=== PATIENT | female | born 1985 | race African-American/Black ===

== ENCOUNTER 2019-07-05 10:45 | Inpatient (IN) | payer MEDICAID, SELFPAY ==
[2019-07-05 10:09] VITALS: BMI 30.9
[2019-07-05 10:42] LABS: ROM Internal Control Test YES-OK TO RESULT pt. (Internal QC)
[2019-07-05 10:43] LABS: ROM Patient Test POSITIVE (Negative)
--- NOTE | 2019-07-05 12:21 | PCM.HP.OB ---
History Date of Admission: 07/05/19 Final SAUL: 06/29/19 Gestational age: 40 Weeks and 6 Days History of this : This is a 34 year-old, G 1P 0 @ 40.6 wks, SROM at home- Meconium in early labor - wishes for minimal intervention. Allergies No Known Allergies Allergy (Verified 07/05/19 12:00) Smoking Status: Never smoker Alcohol: None Number of Fetus(es): 1 NST - FHR Rate Baby A Baseline: 130 Variability:: Moderate Accelerations:: 15 x 15 Decelerations:: None NST Reactive:: Yes FHR Category:: Category I Uterine Activity:: 2-6 History Past Pregnancies: Past Pregnancies Delivery Date Name GA/ Weeks Outcome Route Wt Sex Labor Length Anesthesia Delivery Location Provider FOB Expected Infant Delivery Method: Spontaneous Vaginal Physical Exam Presentation: Cephalic Cervix Dilation (cm): 3 Station: -1 Effacement (%): 70 Assessment/Plan This is a 34 year-old, @ 40.6 wks- SROM in early labor 1) admit to l&D 2) monitor fhr/toco 3) minimal intervention per patient request- if not progressing will continue Pitocin augmentation 4) epidural or Nitrous for pain relief if desired 5) anticipate - Meconium - peds to be present for delivery
[2019-07-05 12:32] LABS: Absolute Lymphocyte Count 1.39 X10^3/uL (0.83-4.51); Absolute Neutrophil Count 7.5 X10^3/uL (2.0-7.7); Basophil# 0.02 X10^3/uL; Basophil% 0.2 % (0-1); Eosinophil# 0.01 X10^3/uL; Eosinophils% 0.1 % (0-5); Hematocrit 34.6 % (37-47); Hemoglobin 11.2 g/dL (12.0-15.0); Lymphocyte # 1.39 X10^3/ul (4.0); Lymphocyte % 14.7 % (19-41); Mean Corp Hgb Conc 32.4 g/dL (32-36); Mean Corpuscular Hgb 30.1 pg (27.0-32.0); Mean Platelet Vol. 11.4 fl (6.2-12.0); Monocyte# 0.53 X10^3/uL; Monocyte% 5.6 % (0-10); NRBC Flagged by Analyzer 0 % (0-5); Neutrophil # 7.45 X10^3/uL (2.7-7.7); Neutrophil % 78.8 % (47-70); Platelet Count 173 K/mm3 (150-450); RBC Distribution Width CV 13.2 % (11.6-14.6); RBC Distribution Width SD 45.2 fl (35.1-43.9); Red Blood Count 3.72 M/mm3 (4.2-5.4); White Blood Count 9.5 K/mm3 (4.4-11.0)
--- NOTE | 2019-07-05 12:59 | PN_ITS ---
Progress Note Patient seen at bedside and exam was performed. Vaginal exam tight 3 cm / 70%/- 2 meconium fluid still noted. Discussed with the patient that she is not feeling contractions and her contraction pattern has spaced out every 2 to 6 minutes. We discussed that she is not in labor and my recommendation would be to start Pitocin at this time. Patient has been ruptured since 529 without cervical change and not in labor. pt would like time to consider this option.
[2019-07-05] MEDS: Lactated Ringers 1,000 ML 50 ML IV (17:17)
[2019-07-05] MEDS: Oxytocin 30 units/NS 500 ml 30 UNITS/500 ML IV.SOLN IV (17:30)
--- NOTE | 2019-07-05 18:37 | PCM.PN.BLA ---
Progress Note late entry: pt was seen at bedside around 5:15pm- pt still was declining pitocin until this time. i reviewed with patient she has been ruptured 12 hours with meconium fluid and has not felt any painful contractions- VE unchanged still 3cm/70/-2. I reviewed that it was my medical opinion at this time to not continue with expectant mgmt and to begin pitocin. pt was agreeable.
[2019-07-05] MEDS: Lactated Ringers 500 ML 999 ML IV ×2 (20:08→21:02)
[2019-07-05] MEDS: Oxytocin 10 UNITS/ML Vial IM (22:49)
[2019-07-05] MEDS: miSOPROStol 200 MCG Tablet 1000 MCG RECTAL (23:00)
--- NOTE | 2019-07-05 23:57 | OP.PCM_ITS ---
Vaginal Delivery Maternal Presentation: Spontaneous Rupture of Membranes Amniotic Membrane Rupture Type: Spontaneous at home Amniotic Fluid Description: Moderate meconium Final SAUL: 07/01/19 Gestational age: 40 Weeks and 4 Days Date of Procedure: 07/05/19 Pre-Operative Diagnosis: Term gestation, SROM at home Post-Operative Diagnosis: live male infant Surgery/ Procedure Performed: Spontaneous Vaginal Delivery Type of Anesthesia: None Description of Procedure: of a live male infant born without complication. Mother with good pushing efforts. Gentle downward traction was placed once the head was delivered the anterior shoulder was delivered with gentle downward traction followed by rest of body. That was vigorous at time of delivery. Placed on mother's chest. Delayed cord clamping was performed. Pediatrics was present in the room due to the meconium. Second-degree vaginal laceration second-degree perineal laceration were appreciated. There was lower segment atony without hemorrhage. IM Pitocin was given as the IV was accidently pulled immediately prior to del silvestre. Rectal Cytotec 1000 micrograms was given. Vaginal lacerations were repaired using 2-0 Vicryl suture and the skin was repaired using 3-0 rapide. Presentation: Vertex Placental Delivery Description: Spontaneous Placenta Disposition: [facility] Cord Vessel Description: 3 Vessels Cord Entanglement: None Estimated Blood Loss: 600 Infant A gender: Male (1 minute): 8 (5 minute): 9 Episiotomy Description: None Laceration: Vaginal Extension/lac - repaired with 2-0 vicryl and 3-0 rapide, 2nd degree Medications given after delivery: IV Pitocin, - - 1000mcg rectal cytotec Complications: None
[2019-07-06] MEDS: Ibuprofen 600 MG Tablet PO ×3 (01:30→23:41)
[2019-07-06 02:40] VITALS: BP 133/81; PULSE 116; RESP 18
[2019-07-06] MEDS: oxyCODONE 5 MG Tablet PO ×2 (02:55→12:24)
[2019-07-06 08:34] VITALS: BP 130/82; PULSE 96; RESP 16; TEMP 36.9
[2019-07-06 12:00] VITALS: BP 140/72; PULSE 86; RESP 16; TEMP 37
--- NOTE | 2019-07-06 13:12 | PCM.PN.OB ---
Subjective: Denies complaints - Physical Exam Vitals/I&O's: Vital Signs Temp Pulse Resp BP 98.6 F 86 16 140/72 H 07/06/19 12:00 07/06/19 12:00 07/06/19 12:00 07/06/19 12:00 Oxygen Delivery Method Room Air Weight: 192 lb Body Mass Index (BMI) 30.9 Intake and Output for Last 24 Hours 07/04/19 07/05/19 07/06/19 23:59 23:59 23:59 Intake Total 1181.91 / 1181.91 Output Total 700 / 700 Balance 1181.91 / 1181.91 -700 / -700 General: Alert, Oriented x3 Abdomen: Soft, Non Tender, Non-Distended - ff mid & below umb Extremities: No Calf Tenderness Laboratory Results 07/05/19 12:00: Blood Type B POSITIVE, Antibody Screen TNP 07/05/19 12:00: Antibody Screen NEGATIVE Current Medications Acetaminophen (Tylenol) 1,000 mg PO Q8H PRN PRN PRN Reason: Pain Score 1-3/10 Bisacodyl (Dulcolax) 10 mg RECTAL UD PRN PRN Reason: If no BM Dibucaine (Dibucaine) 1 applic TOPICAL TID PRN PRN; Protocol PRN Reason: Discomfort Hydrocortisone (Hytone) 1 applic TOPICAL TID PRN PRN; Protocol PRN Reason: Discomfort Ibuprofen (Motrin) 600 mg PO Q6H PRN PRN PRN Reason: Pain Score 1-3/10 Last Admin: 07/06/19 01:30 Dose: 600 mg Documented by: Methylergonovine Maleate (Methergine) 0.2 mg IM X1 PRN PRN Reason: Excess bleeding/uterine atony Ondansetron HCl (Zofran) 4 mg IV Q4H PRN PRN PRN Reason: Nausea Oxycodone HCl (Oxyir) 5 - 10 mg PO Q4H PRN PRN PRN Reason: Pain Score 4-10/10 Last Admin: 07/06/19 12:24 Dose: 10 mg Documented by: Oxytocin (Pitocin) 10 units IM X1 DEWAYNE Last Admin: 07/05/19 22:49 Dose: 10 units Documented by: Senna/Docusate Sodium (Senokot-S, Ángela-Colace) 1 - 2 tablet PO DAILY PRN PRN PRN Reason: Constipation Simethicone (Mylicon) 80 mg PO PCHS PRN PRN Reason: Indigestion/Stomach pain Sodium Chloride () 5 - 15 ml IV UD PRN PRN Reason: SALINE FLUSH Medical Necessity - Tobacco Use Smoking Status: Never smoker Assessment/Plan PPD #1 Routine care Encouraged
[2019-07-06 14:00] VITALS: BP 136/77; PULSE 109; RESP 16; RESP 18
[2019-07-06 19:35] VITALS: BP 135/78; PULSE 107; RESP 18; TEMP 36.6; O2SAT 99
[2019-07-06] MEDS: Senna/Docusate Sodium 1 Tablet PO (21:17)
[2019-07-07 01:18] VITALS: BP 125/70; PULSE 99; RESP 16; TEMP 36.3
[2019-07-07] MEDS: Acetaminophen 500 MG Tablet 1000 MG PO ×2 (04:27→12:19)
[2019-07-07 04:35] LABS: Hemoglobin 7.1 g/dL (12.0-15.0); Mean Corp Hgb Conc 32.3 g/dL (32-36); Mean Corpuscular Hgb 30.5 pg (27.0-32.0); Mean Corpuscular Volume 94.4 fL (81-99); Mean Platelet Vol. 11.1 fl (6.2-12.0); Platelet Count 130 K/mm3 (150-450); RBC Distribution Width CV 13.2 % (11.6-14.6); RBC Distribution Width SD 45.4 fl (35.1-43.9); Red Blood Count 2.33 M/mm3 (4.2-5.4); White Blood Count 10.2 K/mm3 (4.4-11.0)
[2019-07-07] MEDS: Ibuprofen 600 MG Tablet PO (06:37)
[2019-07-07 09:00] VITALS: BP 115/77; PULSE 88; RESP 14; TEMP 36.6; O2SAT 98
--- NOTE | 2019-07-07 09:16 | PCM.PN.OB ---
Subjective: Doing well per patient and nursing staff. Ambulating and taking PO without difficulty. Voiding and passing flatus. Denies any headache, visual changes, shortness of breath, leg pain. Pain controlled. without difficulty. Planning D/C home today. - Physical Exam Vitals/I&O's: Vital Signs Temp Pulse Resp BP Pulse Ox 97.4 F L 99 16 125/70 H 99 07/07/19 01:18 07/07/19 01:18 07/07/19 01:18 07/07/19 01:18 07/06/19 19:35 Oxygen Delivery Method Room Air Weight: 192 lb Body Mass Index (BMI) 30.9 Intake and Output for Last 24 Hours 07/05/19 07/06/19 07/07/19 23:59 23:59 23:59 Intake Total 1181.91 / 1181.91 Output Total 700 / 700 Balance 1181.91 / 1181.91 -700 / -700 General: Alert, Oriented x3, Cooperative HEENT: Atraumatic, Normocephalic Neck: Trachea Midline Lungs: Clear to auscultation, Normal air movement, No rhonchi, No wheeze Cardiovascular: Regular rate, Regular Rhythm, No murmurs Abdomen: Bowel Sounds Present, Soft - Fundus firm 2 below U Extremities: No edema Neurological: Deep Tendon Reflexes 2+/4 and Symmetrical Psych/Mental Status: Normal Affect, Appropriate Laboratory Results 07/07/19 04:20: WBC 10.2, RBC 2.33 L, Hgb 7.1 L, Hct 22.0 L, MCV 94.4, MCH 30.5, MCHC 32.3, RDW Std Deviation 45.4 H, RDW Coeff of Genesis 13.2, Plt Count 130 L, MPV 11.1 Current Medications Acetaminophen (Tylenol) 1,000 mg PO Q8H PRN PRN PRN Reason: Pain Score 1-3/10 Last Admin: 07/07/19 04:27 Dose: 1,000 mg Documented by: Bisacodyl (Dulcolax) 10 mg RECTAL UD PRN PRN Reason: If no BM Dibucaine (Dibucaine) 1 applic TOPICAL TID PRN PRN; Protocol PRN Reason: Discomfort Hydrocortisone (Hytone) 1 applic TOPICAL TID PRN PRN; Protocol PRN Reason: Discomfort Ibuprofen (Motrin) 600 mg PO Q6H PRN PRN PRN Reason: Pain Score 1-3/10 Last Admin: 07/07/19 06:37 Dose: 600 mg Documented by: Methylergonovine Maleate (Methergine) 0.2 mg IM X1 PRN PRN Reason: Excess bleeding/uterine atony Ondansetron HCl (Zofran) 4 mg IV Q4H PRN PRN PRN Reason: Nausea Oxycodone HCl (Oxyir) 5 - 10 mg PO Q4H PRN PRN PRN Reason: Pain Score 4-10/10 Last Admin: 07/06/19 12:24 Dose: 10 mg Documented by: Senna/Docusate Sodium (Senokot-S, Ángela-Colace) 1 - 2 tablet PO DAILY PRN PRN PRN Reason: Constipation Last Admin: 07/06/19 21:17 Dose: 1 tablet Documented by: Simethicone (Mylicon) 80 mg PO PCHS PRN PRN Reason: Indigestion/Stomach pain Sodium Chloride () 5 - 15 ml IV UD PRN PRN Reason: SALINE FLUSH Medical Necessity - Tobacco Use Smoking Status: Never smoker Assessment/Plan A:PPD #2 P: 1) Routine and instructions reviewed 2) Bp with slight elevation, no signs of preeclampsia. Normotensive upon discharge. Follow up for blood pressure check early next week. Preeclampsia symptoms reviewed. Reviewed with , agrees with plan. 3) Hgb 7.1, acute blood loss anemia. To start iron supplementation. Repeat CBC next week in office. Asymptomatic 4) D/C home
--- NOTE | 2019-07-07 09:19 | DCINST_ITS ---
Discharge Diet: No Restrictions Discharge Activity: Return to Normal Activity, May not drive while taking narcotic pain medications., May Shower May resume sexual activity in: 4-6 weeks Weight Bearing Status: Full weight bearing Additional Activity Instructions:: Nothing in the vagina for 4-6 weeks. You may return to work/school in 6 weeks. Call your doctor if your incision/area has: Continuous Slow Oozing, Sudden Increased Bleeding, Increased Pain/ Swelling, Increased Redness, Foul Smelling Discharge Call your doctor if you observe: Fever of 101 or Higher, Coldness, Increased Pain, Inability to urinate, Inability to have a bowel movement, Using more than one pad per hour, Shortness of breath, Chest pain, Increased palpitations (irregular heartbeat), Calf discomfort, Uncontrolled pain Additional Instructions: If you experience any of the following, contact your healthcare provider. * Bleeding that soaks a pad every hour for 2 hours * Fever 100.4 or higher * Unrelieved incision or abdominal pain * Swelling, redness, discharge or bleeding from your incision or episiotomy site * Your incision begins to separate * Problems urinating (including inability to urinate or burning while urinating). * Visual changes * Severe headache * Flu-like symptoms * Pain or redness in one of both of your breasts * Pain, warmth, tenderness or swelling in your legs, especially the calf area * Frequent nausea and vomiting * Symptoms of depression or anxiety If you experience any of the following, call 911 or go to the nearest Emergency Room. * Chest pain * Problems breathing * Seizure activity * Partial or complete paralysis of a body part, slurred speech, weakness or drooping of the face, or a sudden inability to walk or hold your balance Allergies/Adverse Reactions: Allergies No Known Allergies Allergy (Verified 07/05/19 12:00) Medications to take at Discharge Ibuprofen [Motrin] 600 mg PO Q6H PRN PRN #30 tab 07/07/19 The following prescriptions were given: Ibuprofen [Motrin] 600 mg PO Q6H PRN PRN #30 tab PRN Reason: Pain Score 1-3/10 Transmission Status: Pending to [facility]/pharmacy #[id number] Please Follow Up With: Roula Riddle CNM When: Call to make an appointment with your doctor in 07/10/19 for BP check, 2 weeks and 6 weeks. Primary Care Physician: Care Physician,No Primary [Primary Care Provider] - Test Results: Test results from this visit will be discussed in further detail at your follow- up appointment, if applicable.
[2019-07-07 13:41] VITALS: BP 113/77; PULSE 98; RESP 16; TEMP 36.7; O2SAT 100
== END 2019-07-07 14:30 | disposition home or self-care (01) | DRG 560 ==
LOC: WPOUT 10:48
PROVIDERS: Admitting Provider Obstetrics & Gynecology; Referring Provider Obstetrics & Gynecology; Visit Provider Obstetrics & Gynecology
DX: O77.0 Labor and delivery complicated by meconium in amniotic fluid (principal); O70.1 Second degree perineal laceration during delivery; Z3A.40 40 weeks gestation of pregnancy; Z37.0 Single live birth; O75.89 Other specified complications of labor and delivery; O90.81 Anemia of the puerperium; D62 Acute posthemorrhagic anemia
CPT/HCPCS: 59025; 59050; 84112; 85025; 85027; 86850; 86900; 86901; 99218; J7120; G0378